=== PATIENT | female | born 1995 ===

== ENCOUNTER 2022-12-18 20:00 | Inpatient (IN) | payer BC ==
[2022-12-18] MEDS ORDERED: Tranexamic Acid 1,000 MG in Sodium Chloride 0.9% 100 ML IV PRN (20:03)
[2022-12-18] MEDS ORDERED: Butorphanol 1 MG/ML SDV IVPUSH PRN (20:03)
[2022-12-18] MEDS ORDERED: Sodium Chloride 0.9% 2.5 ML Syringe FLUSH PRN (20:03)
[2022-12-18] MEDS ORDERED: Carboprost Tromethamine 250 MCG/1 mL Vial IM PRN (20:03)
[2022-12-18] MEDS ORDERED: Ondansetron 4 MG/2 ML SDV IVPUSH PRN (20:03)
[2022-12-18] MEDS ORDERED: Lidocaine 1% 50 ML MDV INJECT PRN (20:03)
[2022-12-18] MEDS ORDERED: Water For Irrigation,Sterile 1,000 ML Container IRR PRN (20:03)
[2022-12-18] MEDS ORDERED: Sodium Chloride 0.9% 20 ML SDV IV PRN (20:03)
[2022-12-18] MEDS ORDERED: Methylergonovine 0.2 MG/1 ML Amp IM PRN (20:03)
[2022-12-18] MEDS ORDERED: Sodium Chloride 0.9% 10 ML Syringe FLUSH PRN (20:03)
[2022-12-18] MEDS ORDERED: Misoprostol 200 MCG Tab PO PRN (20:03)
[2022-12-18] MEDS ORDERED: Misoprostol 25 MCG (1/4 of 100 MCG) Tab VAG PRN (20:05)
[2022-12-18] MEDS ORDERED: Terbutaline 1 MG/ML SDV SUBCUT PRN (20:05)
[2022-12-18] MEDS ORDERED: Lactated Ringers 1,000 ML IV SCH (20:15)
[2022-12-18] MEDS ORDERED: Oxytocin/0.9 % Sodium Chloride 30 UNIT/500 ML BAG IV SCH ×2 (20:15)
[2022-12-18 20:59] LABS: HEMATOCRIT 35.3 % (36.0-46.0); HEMOGLOBIN 11.7 g/dL (12.0-16.0); MEAN CORPUSCULAR HEMOGLOBIN 29.3 pg (27.0-32.0); MEAN CORPUSCULAR HGB CONC 33.1 g/dL (31.0-37.0); MEAN CORPUSCULAR VOLUME 88.3 fL (80.0-98.0); MEAN PLATELET VOLUME 11.5 fL (7.40-12.00); WHITE BLOOD CELL COUNT,WBC 10.39 K/uL (4.0-11.0)
[2022-12-19] MEDS: Misoprostol 25 MCG (1/4 of 100 MCG) Tab VAG PRN ×2 (01:14→05:21)
[2022-12-19] MEDS ORDERED: Phenylephrine HCl 0.5 MG/5 ML AMP IVPUSH PRN (07:35)
[2022-12-19] MEDS ORDERED: ePHEDrine 50 MG/ML SDV IVPUSH PRN ×2 (07:35)
[2022-12-19] MEDS ORDERED: Ropivacaine HCl/PF 400 MG in Premix Bag 1 BAG EPIDUR SCH (07:45)
[2022-12-19] MEDS ORDERED: Lanolin 100% Cream 7 GM Tube TOP PRN (14:17)
[2022-12-19] MEDS ORDERED: Acetaminophen 500 MG Tab PO PRN (14:17)
[2022-12-19] MEDS ORDERED: Witch Hazel Medicated Pads 40/Jar TOP PRN (14:17)
[2022-12-19] MEDS ORDERED: Docusate Sodium 100 MG Cap PO PRN (14:17)
[2022-12-19] MEDS ORDERED: Benzocaine/Menthol 20%-0.5% Spray 78 GM Cannister TOP PRN (14:17)
[2022-12-19] MEDS ORDERED: Bisacodyl 10 MG Supp RECTAL PRN (14:17)
[2022-12-19] MEDS ORDERED: Ibuprofen 400 MG Tab PO PRN (14:17)
[2022-12-19] MEDS ORDERED: oxyCODONE 5 MG Tab PO PRN (14:17)
[2022-12-19 14:27] LABS: PH,UMBILICAL ARTERIAL 7.2 (7.18-7.38); PH,UMBILICAL VENOUS 7.228 (7.25-7.45)
[2022-12-19] MEDS: Ibuprofen 800 MG Tab PO PRN (15:35)
[2022-12-19] MEDS: Acetaminophen 500 MG Tab PO PRN (23:14)
[2022-12-20] MEDS: Ibuprofen 800 MG Tab PO PRN ×2 (02:02→20:15)
[2022-12-20] MEDS: Acetaminophen 500 MG Tab PO PRN (04:40)
[2022-12-20 07:58] LABS: HEMATOCRIT 24.1 % (36.0-46.0); HEMOGLOBIN 7.9 g/dL (12.0-16.0)
[2022-12-20] MEDS ORDERED: Sodium Ferric Gluconate Cmplex 125 MG in Sodium Chloride 0.9% 100 ML IV ONE (08:30)
== END 2022-12-21 16:00 | disposition home or self-care (01) | DRG 560 ==
LOC: MW.OBCHECK 20:00 → MW.OB 20:02 → MW.OBCHECK 20:09 → OBSVTOIN 12-19 13:38 → MW.OB 12-19 19:52
PROVIDERS: ADMIT Obstetrics & Gynecology; ATTEND Obstetrics & Gynecology
PROC: 10E0XZZ Delivery of Products of Conception, External Approach (ICD-10-PCS; principal; 2022-12-19)
PROC: 10907ZC Drainage of Amniotic Fluid, Therapeutic from Products of Conception, Via Natural or Artificial Opening (ICD-10-PCS; 2022-12-19)
PROC: 3E0P7VZ Introduction of Hormone into Female Reproductive, Via Natural or Artificial Opening (ICD-10-PCS; 2022-12-19)
PROC: 3E033VJ Introduction of Other Hormone into Peripheral Vein, Percutaneous Approach (ICD-10-PCS; 2022-12-19)
PROC: 3E0R3BZ Introduction of Anesthetic Agent into Spinal Canal, Percutaneous Approach (ICD-10-PCS; 2022-12-19)
PROC: 00HU33Z Insertion of Infusion Device into Spinal Canal, Percutaneous Approach (ICD-10-PCS; 2022-12-19)
PROC: 0KQM0ZZ Repair Perineum Muscle, Open Approach (ICD-10-PCS; 2022-12-19)
DX: O48.0 Post-term pregnancy (principal); O77.0 Labor and delivery complicated by meconium in amniotic fluid; O70.1 Second degree perineal laceration during delivery; Z37.0 Single live birth; Z3A.41 41 weeks gestation of pregnancy
CPT/HCPCS: 36415; 59025; 59409; 82803; 85014; 85018; 85027; 86592; 86850; 86900; 86901; A9270-GY; J2001; J2590; J2916; J3490; J7120